=== PATIENT | female | born 1935 | race African-American/Black ===

== ENCOUNTER 2018-06-20 07:49 | Day surgery (SDC) | payer MEDICARE, BC ==
[~2018-06-20] VITALS: Ht 160.8 cm; Wt 64.9 kg
[2018-06-20] VITALS (9 sets, daily range): BP systolic 120–155; BP diastolic 72–128; PULSE 66–133; TEMP 98
[2018-06-20 08:21] LABS: HEMATOCRIT 39.6 % (37.0-47.0); HEMOGLOBIN 12.8 g/dl (12.5-16.0); MEAN CELL VOLUME 92 fl (80.0-100.0); MEAN CORPUSCULAR HEMOGLOBIN 30 pg (27.0-31.0); MEAN CORPUSCULAR HGB CONC 32 g/dl (33.0-37.0); MEAN PLATELET VOLUME 10.2 fl (7.4-10.4); PLATELET COUNT 169 K/mm3 (130-400); RED BLOOD COUNT 4.33 M/mm3 (4.10-5.30); REDCELL DISTRIBUTION WIDTH-CV 13.9 % (11.5-14.5)
[2018-06-20] MEDS ORDERED: GLUCOPHAGE1000 MG PO (08:22)
[2018-06-20] MEDS ORDERED: ELIQUIS 2.5 PO (08:23)
[2018-06-20] MEDS ORDERED: LOPRESSOR 550 MG/TAB PO (08:25)
[2018-06-20 08:30] LABS: CALCIUM 9.2 mg/dL (8.4-10.2); CREATININE, serum 0.82 mg/dL (0.52-1.25); POTASSIUM 3.9 mmol/L (3.4-5.0)
[2018-06-20 08:37] LABS: INR 1.3 (0.8-3.0); PROTHROMBIN TIME 14.5 SECONDS (9.7-12.8)
[2018-06-20] MEDS ORDERED: LIPITOR 40MG TA40 MG PO (13:45)
[2018-06-20] MEDS ORDERED: TOPROL XL100 MG PO (13:45)
[2018-06-20] MEDS ORDERED: PLAVIX 75MG TAB75 MG PO (13:46)
== END 2018-06-20 16:40 | disposition home or self-care (01) ==
LOC: COL.CAR 07:49
PROVIDERS: Internal Medicine Cardiovascular Disease
DX: I25.10 Atherosclerotic heart disease of native coronary artery without angina pectoris (principal); R94.39 Abnormal result of other cardiovascular function study; I10 Essential (primary) hypertension; E78.5 Hyperlipidemia, unspecified; I48.91 Unspecified atrial fibrillation; Z79.01 Long term (current) use of anticoagulants; Z88.2 Allergy status to sulfonamides; Z88.6 Allergy status to analgesic agent; Z91.040 Latex allergy status
CPT/HCPCS: J2250; J3010; Q9967

== ENCOUNTER 2021-04-05 08:24 | Day surgery (SDC) | payer MEDICARE ==
[~2021-04-05] VITALS: Ht 160.7 cm; Wt 53.9 kg
[~2021-04-05 08:24] MED LIST: CORDARONE200 MG/TAB PO; COREG 6.256.25 MG/TA PO; ELIQUIS 2.5 PO; GLUCOPHAGE1000 MG PO; K-TAB20 PO; LASIX 20MG TABL20 MG PO; LIPITOR 40MG TA40 MG PO; LOPRESSOR 550 MG/TAB PO; MAG-OX 400400 MG/TAB PO; PLAVIX 75MG TAB75 MG PO; PRINIVIL20 MG PO; PRINIVIL5 MG PO; TOPROL XL 50MG50 MG PO; TOPROL XL100 MG PO
[2021-04-05 09:23] LABS: INR 1.6 (0.8-3.0); PROTHROMBIN TIME 18.3 SECONDS (9.7-12.8)
[2021-04-05 09:24] LABS: HEMOGLOBIN 11.1 g/dl (12.5-16.0); MEAN CELL VOLUME 96 fl (80.0-100.0); MEAN CORPUSCULAR HEMOGLOBIN 30 pg (27.0-31.0); MEAN CORPUSCULAR HGB CONC 32 g/dl (33.0-37.0); MEAN PLATELET VOLUME 9.8 fl (7.4-10.4); PLATELET COUNT 199 K/mm3 (130-400); RED BLOOD COUNT 3.65 M/mm3 (4.10-5.30); REDCELL DISTRIBUTION WIDTH-CV 14.7 % (11.5-14.5)
[2021-04-05 09:27] LABS: HEMATOCRIT 34.9 % (37.0-47.0)
[2021-04-05 09:31] LABS: CALCIUM 9.3 mg/dL (8.4-10.2); CREATININE, serum 0.78 (0.52-1.25); MAGNESIUM 1.7 mg/dL (1.6-2.3)
[2021-04-05] MEDS ORDERED: GLUCOPHAGE1000 MG PO (09:34)
[2021-04-05] MEDS ORDERED: PACERONE200 MG PO (09:35)
[2021-04-05] MEDS ORDERED: PLAVIX 75MG TAB75 MG PO (09:38)
[2021-04-05] MEDS ORDERED: LIPITOR 40MG TA40 MG PO (09:38)
[2021-04-05 10:12] VITALS: BP 197/89; PULSE 62; TEMP 98.8
[2021-04-05 10:30] VITALS: BP 168/80; PULSE 61
[2021-04-05 10:35] VITALS: BP 180/84; PULSE 59
[2021-04-05 10:50] VITALS: BP 170/79; PULSE 58
[2021-04-05 11:05] VITALS: BP 180/85; PULSE 57
[2021-04-05 11:15] VITALS: BP 170/80; PULSE 57
--- NOTE | 2021-04-05 11:24 | NUR ---
Discharge instructions gien to pt.pt verbalizes understanding.INT removed,catheter tip intact.
--- NOTE | 2021-04-05 11:30 | NUR ---
Pt escorted out via wheelchair by this nurse.
== END 2021-04-05 13:38 | disposition home or self-care (01) ==
LOC: COL.RAD 08:24 → COL.CAR 09:00 → COL.RAD 13:38
PROVIDERS: Internal Medicine Cardiovascular Disease
DX: I48.0 Paroxysmal atrial fibrillation (principal); I50.20 Unspecified systolic (congestive) heart failure; I48.92 Unspecified atrial flutter; I25.10 Atherosclerotic heart disease of native coronary artery without angina pectoris; I34.0 Nonrheumatic mitral (valve) insufficiency; I10 Essential (primary) hypertension; E83.42 Hypomagnesemia; E78.5 Hyperlipidemia, unspecified; E11.9 Type 2 diabetes mellitus without complications; Z79.84 Long term (current) use of oral hypoglycemic drugs; M19.90 Unspecified osteoarthritis, unspecified site; K51.90 Ulcerative colitis, unspecified, without complications; Z79.02 Long term (current) use of antithrombotics/antiplatelets; Z79.899 Other long term (current) drug therapy; Z79.01 Long term (current) use of anticoagulants; Z91.040 Latex allergy status; Z88.6 Allergy status to analgesic agent; Z88.2 Allergy status to sulfonamides
CPT/HCPCS: J2704; J7120